=== PATIENT | female | born 1945 | race Caucasian/White ===

== ENCOUNTER 2022-04-11 02:25 | Outpatient (CLI) | payer MEDICARE, SELFPAY ==
[2022-04-11 12:58] LABS: Abs Immature Grans 0.02 10^3/uL (0.0-0.06); Absolute Basophil Count 0.03 10^3/uL (0.0-0.2); Absolute Eosinophil Count 0.06 10^3/uL (0.0-0.7); Absolute Lymphocyte Count 1.59 10^3/uL (1.2-3.4); Absolute Monocyte Count 0.75 10^3/uL (0.1-0.8); Absolute Neutrophil Count 4.94 10^3/uL (1.2-6.7); Basophils % 0.4; Eosinophils % 0.8; HCT 39.6 % (36.0-46.0); HGB 13.2 g/dL (11.2-15.7); Immature Grans % 0.3; Lymphocytes % 21.5; MCH 30.7 pg (27.0-33.0); MCHC 33.3 % (32.0-36.0); MCV 92 fL (80-95); MPV 9.7 fL (8.0-11.0); Monocytes % 10.1; Neutrophils % 66.9; Platelet Count 282 10^3/uL (130-400); RDW-SD 47.2 fL; WBC 7.39 10^3/uL (4.4-10.8)
[2022-04-11 14:45] LABS: ALT 22 U/L (14-59); AST 23 U/L (15-37); Albumin 3.7 g/dL (3.4-5.0); Alkaline Phosphatase 84 U/L (46-116); Anion Gap 7.6 mmol/L (3-11); BUN 21 mg/dL (7-18); Bilirubin, Total 0.3 mg/dL (0.2-1.0); CO2 29.4 mmol/L (21.0-32.0); CREATININE 0.8 mg/dL (0.55-1.02); Calcium 9.6 mg/dL (8.5-10.1); Chloride 104 mmol/L (98-107); Glucose 88 mg/dL (74-106); Potassium 4.1 mmol/L (3.5-5.1); Sodium 141 mmol/L (136-145); Total Protein 7.3 g/dL (6.4-8.2)
[2022-04-12 18:06] LABS: ADAMTS13 Activity Assay 54 % (>/=70)
== END 2022-04-11 02:26 | disposition home or self-care (01) ==
LOC: LBO 02:26
DX: D69.3 Immune thrombocytopenic purpura (principal)
CPT/HCPCS: 36415; 80053; 85397; 85025

== ENCOUNTER 2022-04-14 10:14 | Emergency (ER) | payer MEDICARE, SELFPAY ==
[2022-04-14 10:29] VITALS: BP 137/71; PULSE 90; RESP 18; TEMP 36.2; O2SAT 96
--- NOTE | 2022-04-14 10:41 | ED.GENADUL_ITS ---
Discharge Plan Disposition Patient Disposition: HOME Condition: Stable Discharge Details Clinical Impression: Thrombosis of left internal and external jugular veins Primary Care Provider: Tra Johnson ED Provider: Kacey Antonio Home Meds and New Rx's Prescriptions: New Eliquis 5 mg tablet 5 mg PO BID 90 Days Qty: 210 0RF Rx Instructions: Take 2 tabs twice daily for 1 week, and then 1 tab twice daily for 3 months Continued levothyroxine [Synthroid] 50 mcg Tablet 50 mcg PO DAILY Discharge Instructions Instructions: Deep Vein Thrombosis (ED) Additional Instructions: Your imaging today revealed a blood clot in the veins in the left side of your neck. [facility] hematology and vascular surgery are recommending treatment with anticoagulation which will likely be for the next 3 months. You will be taking 10 mg of Eliquis twice daily for 1 week and then 5 mg twice daily after that for approximately 3 months. You can follow-up with your talent development analyst in [place] for further evaluation in the next several weeks. You can follow-up with vascular surgery in [place] or follow-up with [facility] vascular surgery for further evaluation in the next month. An order for an outpatient ultrasound of your bilateral upper extremities has been placed. You will be contacted by the radiology department regarding scheduling of this test. You have been placed on care management list to arrange for a follow-up appointment with the primary care doctor to establish care and for reevaluation in the next few weeks. A referral has also been placed to [facility] vascular surgery if you decide to follow-up with them for reevaluation. Return immediately to the emergency department if you develop any worsening or new concerning symptoms. Discharge Data Discharge Physician: Kacey Antonio Medical Decision Making 1040 -- 76-year-old female with a history of TTP and splenectomy presents with tender lump at the base of her neck since last night. She also admits to fatigue last night but denies any fever. She had a recent lab draw on her left arm 3 days ago. She appears comfortable and nontoxic. There is an approximate 3 x 3 cm tender soft mobile mass noted above the left mid to medial clavicle. There is no overlying cellulitis, rash, lesions, crepitus or trauma. Her distal upper extremity pulses are intact. Normal oropharynx. No meningeal signs. Differential diagnosis includes reactive lymphadenopathy, blood clot, abscess, soft tissue swelling, less likely lymphoma. Patient was offered outpatient ultrasound but she would rather proceed with CT today. We will place an IV, bolus IV fluids, screening labs including CRP and ESR, COVID and obtain a CT neck w/ IV contrast. 1330 -- Labs and imaging reviewed. Normal white blood cell count. Platelets 260. CRP minimally elevated at 2.43. ESR within normal limits. COVID- negative. CT notes with thrombosis of the left innominate, left internal jugular and left external jugular vein. Overall findings interpreted as concerning for possible thrombophlebitis. We will consult [facility] hematology or vascular for review of images and further recommendations. 1430 -- discussed with [facility] hematology who feels that considering the vessels involved with the thrombosis, patient may need anticoagulation. Is recommending discussion with vascular surgery. Case discussed with [facility] vascular surgery who agrees with plan for anticoagulation for 3 months. Can treat with DOAC and likely Eliquis is jessica ropriate. Recommend an ultrasound of the bilateral upper extremities to assess for DVT on the right side and to assess flow. As patient has no physical congestion or upper extremity swelling, no surgical intervention indicated. Recommended further discussion with [facility] hematology if Eliquis appropriate with her history of TTP. Discussed with [facility] hematology and they recommend Eliquis 10 mg twice daily for 7 days then 5 mg twice daily for 3 months. [facility] hematology is also recommending a repeat CBC in 1 week to check her platelets. Can continue Eliquis if her platelets remain greater than 50,000. Patient can follow-up with hematology in [place] or in this area. [facility] vascular surgery states she can follow-up with vascular surgery in [place] or at [facility]. Patient was given a dose of Eliquis here in addition to doses to go for tomorrow and a prescription sent electronically to her pharmacy. An order for an outpatient bilateral upper extremity Doppler ultrasound placed. She was placed on care management list to establish care with a primary in the area for reevaluation and for repeat CBC in 1 week. A referral was also placed to [facility] vascular surgery for follow-up in 1 month. Usual and customary return precautions given prior to discharge. Medical Records Medical records reviewed: Yes I reviewed the patient's medical records. Imaging Data Radiologic Study: Radiologist's impression: CT Neck With Contrast Exam date and time: 04/14/2022 12:13 PM Age: 76 years old Clinical indication: Patient HX: Lump left side of neck. CT bb marker placed at area of lump while laying down. Patient has hypothyroidism. TECHNIQUE: Imaging protocol: Computed tomography of the neck with contrast. Radiation optimization: All CT scans at this facility use at least one of these dose optimization techniques: automated exposure control; mA and/or kV adjustment per patient size (includes targeted exams where dose is matched to clinical indication); or iterative reconstruction. Delayed interpretation of this study due to missing CT images with prolonged time to retrieve the images. Contrast material: OMNIPAQUE 350; Contrast volume: 100 ml; Contrast route: INTRAVENOUS (IV);? COMPARISON: No relevant prior studies available. FINDINGS: Pharynx: Unremarkable. No significant tonsillar enlargement. Larynx: Unremarkable. Epiglottis is normal. Prevertebral and retropharyngeal spaces: Unremarkable. Salivary glands: Nonspecific calcifications in the bilateral parotid glands. Thyroid: Normal. No enlarged or calcified nodules.? Lymph nodes: Unremarkable. No lymphadenopathy. Trachea: Visualized trachea is unremarkable. Lungs: Unremarkable as visualized. Bones/joints: Degenerative changes of the cervical spine. Vasculature: Thrombosis of the left innominate vein, left internal jugular vein and left external jugular vein. The skin marker localizes to the region of the thrombosed left external jugular vein. Soft tissues: Soft tissue inflammatory changes at the site of the left lower neck skin marker, extending into the supraclavicular region, anterior left chest wall and anterior mediastinum. No discrete soft tissue mass. IMPRESSION: Thrombosis of the left innominate vein, left internal jugular vein and left external jugular vein. The skin marker localizes to the region of the thrombosed left external jugular vein. Soft tissue inflammatory changes at the site of the left lower neck skin marker, extending into the supraclavicular region, anterior left chest wall and anterior mediastinum. Constellation of findings are concerning for possible thrombophlebitis. Correlate clinically. Lab Data Lab results reviewed: Yes I reviewed the patient's lab results. Labs: Laboratory Tests Range/Units 04/14/22 04/14/22 04/14/22 11:28 11:28 11:28 WBC (4.4-10.8) 10^3/uL 7.10 RBC (3.93-5.22) 10^6/uL 4.31 Hgb (11.2-15.7) g/dL 13.2 Hct (36.0-46.0) % 39.7 MCV (80-95) fL 92 MCH (27.0-33.0) pg 30.6 MCHC (32.0-36.0) % 33.2 RDW (11.7-14.6) % 14.0 Plt Count (130-400) 10^3/uL 260 MPV (8.0-11.0) fL 9.9 Immature Gran % 0.4 Neutrophils % 74.3 Lymphocytes % 14.8 Monocytes % 9.9 Eosinophils % 0.3 Basophils % 0.3 Nucleated RBC % (0.0-0.3) % 0.0 Absolute Neutrophils (1.2-6.7) 10^3/uL 5.28 Absolute Lymphocytes (1.2-3.4) 10^3/uL 1.05 L Absolute Monocytes (0.1-0.8) 10^3/uL 0.70 Absolute Eosinophils (0.0-0.7) 10^3/uL 0.02 Absolute Basophils (0.0-0.2) 10^3/uL 0.02 ESR (0-30) mm/hr 13 Sodium Cancelled Potassium Cancelled Chloride Cancelled Carbon Dioxide Cancelled Anion Gap Cancelled BUN Cancelled Creatinine Cancelled Estimated GFR/1.73 m2 Cancelled Glucose Cancelled Calcium Cancelled Total Bilirubin Cancelled AST Cancelled ALT Cancelled Alkaline Phosphatase Cancelled C-Reactive Protein Cancelled Total Protein Cancelled Albumin Cancelled COVID-19 Source SARS-CoV-2 (PCR) (Negative) Range/Units 04/14/22 04/14/22 11:35 12:25 WBC (4.4-10.8) 10^3/uL RBC (3.93-5.22) 10^6/uL Hgb (11.2-15.7) g/dL Hct (36.0-46.0) % MCV (80-95) fL MCH (27.0-33.0) pg MCHC (32.0-36.0) % RDW (11.7-14.6) % Plt Count (130-400) 10^3/uL MPV (8.0-11.0) fL Immature Gran % Neutrophils % Lymphocytes % Monocytes % Eosinophils % Basophils % Nucleated RBC % (0.0-0.3) % Absolute Neutrophils (1.2-6.7) 10^3/uL Absolute Lymphocytes (1.2-3.4) 10^3/uL Absolute Monocytes (0.1-0.8) 10^3/uL Absolute Eosinophils (0.0-0.7) 10^3/uL Absolute Basophils (0.0-0.2) 10^3/uL ESR (0-30) mm/hr Sodium 135 L Potassium 4.4 Chloride 102 Carbon Dioxide 28.4 Anion Gap 4.6 BUN 14 Creatinine 0.9 Estimated GFR/1.73 m2 >= 60.00 Glucose 91 Calcium 8.9 Total Bilirubin 0.5 AST 14 L ALT 17 Alkaline Phosphatase 78 C-Reactive Protein 2.43 H Total Protein 6.2 L Albumin 3.0 L COVID-19 Source Nasal/Nares SARS-CoV-2 (PCR) (Negative) Negative HPI General Mode of arrival: ambulatory . Date/Time Provider Initiated Documentation: 04/14/22 10:40 . Limitations to Documentation: no limitations . Information obtained by: patient . HPI Narrative: Pt is a 76yo F w/ a h/o TTP and splenectomy who presents to the ED presents to the ED with a complaint of tender lump above her left clavicle since last night. Patient states she noted a lump at the base of her neck above her left clavicle last night which has not significantly grown in size since she noticed it. She states it is tender to touch and seems to improve in size when laying or sitting down and increases in size when standing. She states she lives in [place] but has a house in [place] and has been here since April 01. She states her primary doctor in [place] ordered routine labs which she had done here as an outpatient on 04/11 for monitoring of her TTP. She states the lab was drawn in her left arm but denies any bruising or swelling around the area. She denies any recent vaccinations. She denies any known recent exposure to COVID. She does admit to fatigue since last night but denies any known fever,, chest pain, difficulty breathing, sore throat, ear pain, nausea, vomiting, diarrhea or abdominal pain. She has not taken any medication for pain today. Related Data Home Medications Medication Instructions Recorded Confirmed apixaban 5 mg tablet (Eliquis) 5 mg PO BID 3 months #210 tabs 04/14/22 levothyroxine 50 mcg tablet 50 mcg PO DAILY 04/14/22 04/14/22 (Synthroid) Previous Rx's Medication Instructions Recorded apixaban 5 mg tablet (Eliquis) 5 mg PO BID 3 months #210 tabs 04/14/22 Allergies Allergy/AdvReac Type Severity Reaction Status Date / Time No Known Allergies Allergy Unverified 04/14/22 10:33 General Stated Complaint: GenMedical ETHAN: 3 Review of Systems All systems reviewed & are unremarkable except as noted in HPI and below Constitutional Constitutional: Denies chills, Denies excessive sweating, Denies fatigue, Denies fever(s), Denies weakness and Denies weight loss Eyes Eyes: Reports system reviewed and no additional complaints, except as documented and Denies blurry vision ENT Ears, Nose, Mouth, and Throat: Denies vertigo, Denies dizziness, Denies otalgia, Denies nasal congestion, Denies sore throat and Denies throat swelling Cardiovascular Cardiovascular: Denies chest pain, Denies syncope, Denies rapid heart rate and Denies dyspnea Respiratory Respiratory: Denies chest congestion, Denies cough, Denies pain on inspiration and Denies dyspnea Gastrointestinal Gastrointestinal: Denies abdominal pain, Denies diarrhea and Denies vomiting Genitourinary Genitourinary: Denies hematuria, Denies dysuria and Denies flank pain Musculoskeletal Musculoskeletal: Denies back pain and Denies joint swelling Integumentary/Breasts Skin/Breast: Denies lesions and Denies rash Neurologic Neurologic: Denies behavioral changes, Denies confusion, Denies vertigo, Denies dizziness, Denies syncope, Denies localized weakness and Denies weakness Psychiatric Psychiatric: Denies behavioral changes, Denies confusion and Denies depression Endocrine Endocrine: Denies excessive sweating and Denies fatigue Hematologic/Lymphatic Hematologic/Lymphatic: Denies easy bruising and Denies lymphadenopathy Allergic/Immunologic Allergic/Immunologic: Denies throat swelling PFSH All Active Problems (Updated 04/14/22 @ 16:37 by Kacey Antonio DO) Thrombosis of left internal and external jugular veins (Acute) Medical History (Updated 04/14/22 @ 16:37 by Kacey Antonio DO) Idiopathic thrombocytopenic purpura (ITP) TTP (thrombotic thrombocytopenic purpura) Surgical History (Updated 04/14/22 @ 11:13 by Kacey Antonio DO) History of total splenectomy Social History Smoking/Tobacco Use Status: Former Tobacco Use Smoking risk assessment performed?: Yes Alcohol Intake: current Alcohol Intake frequency: holidays/special occasions only Drug use: Never Substance use type: does not use Do you feel safe at home: Yes Do you feel safe in your relationship?: Yes Exam Const General: cooperative and healthy appearing Orientation: alert, awake and oriented x3 HENMT Head: normal to inspection Ears: hearing grossly normal bilaterally, external ears normal and TM's normal bilaterally General nose exam: external nose normal Face and sinus: normal facial exam Mouth: oral mucosae normal Teeth and gingiva: dentition normal Throat: posterior oropharynx normal Eyes General: appearance normal, both eyes and all related structures Eyelids: eyelids normal Pupils: PERRL EOM: EOM intact bilaterally Neck Neck: normal visual inspection Lymphatic: no lymphadenopathy noted Neck images: 1. An approximate 3 x 3 cm soft mobile tender mass noted above the left medial to mid clavicle. It appears to diminish in size when supine and the increase in size or become more prominent upon standing. There is no overlying erythema, rash, lesions, ecchymosis or crepitus. Chest Chest: normal inspection of the chest Resp Effort & Inspection: normal respiratory effort and able to speak in complete sentences Auscultation: clear to auscultation bilaterally Cardio Rate: regular rate Rhythm: regular rhythm GI Inspection: normal to inspection Palpation: soft, not firm, no guarding, no hepatosplenomegaly, no masses and nontender Auscultation: normal bowel sounds Back/Spine/Pelvis Back: no CVA tenderness Skin General skin exam: no rashes or lesions noted Neuro General: patient alert and patient awake Cognition: normal cognition Speech: speech normal Gait: normal gait Motor: muscle tone normal throughout Sensory Exam: no sensory deficits noted Extrem General: normal to inspection, full ROM and capillary refill normal Other: Bilateral radial and ulnar pulses intact. Psych Appearance: grossly normal Mental Status: mental status grossly normal Speech and Movement: speech and movement normal Affect: normal affect Thought Process: normal Course Vital Signs Vital signs: Vital Signs Temperature 97.2 F L 04/14/22 10:29 Pulse 90 04/14/22 10:29 Respiratory Rate 18 04/14/22 10:29 Blood Pressure 137/71 04/14/22 10:29 Pulse Oximetry 96 04/14/22 10:29 Temperature 97.2 F L 04/14/22 10:29 Temperature Source Temporal Artery Scan 04/14/22 10:29 Pulse 90 04/14/22 10:29 Respiratory Rate 18 04/14/22 10:29 Respiratory Effort Non-Labored 04/14/22 10:34 Blood Pressure 137/71 04/14/22 10:29 Blood Pressure Position Sitting 04/14/22 10:29 Pulse Oximetry 96 04/14/22 10:29 Oxygen Delivery Method Room Air 04/14/22 10:29 Oxygen Flow Rate 0 04/14/22 10:29
--- NOTE | 2022-04-14 11:00 | DI.CT_ITS ---
Exam(s) CT NECK W EXAM: CT NECK W CLINICAL HISTORY: supraclavicular mass, r/o lymph node/fluid/clot. TECHNIQUE: Imaging Protocol: Axial CT angiography was performed with multi-slice acquisition and mu lti-planar and/or 3D reconstructions. CONTRAST MATERIAL: Intravenous: Omnipaque 350 Contrast volume:100 mL COMPARISON: No exams were available for comparison FINDINGS: There is a BB marker on the left side of the neck. This appears to correspond to a thrombosed left e xternal jugular vein. There. There appears to be thrombosis of both the left internal and external jugular veins. Also thrombosis of the left innominate vein. There is no separate discrete soft tiss ue mass. However, there is some inflammatory change in the lower left neck region, these findings to gether implying probable thrombophlebitis. Nasopharynx: Unremarkable. Oropharynx: Unremarkable. Hypopharynx: Unremarkable. Valleculae and epiglottis appear unremarkable. Aryepiglottic folds unrem arkable. True vocal cords and subglottic airway: Unremarkable. Thyroid gland: Unremarkable. Salivary glands: Small calcifications in the parotid glands bilaterally. No discrete mass although t he both parotid glands appears denser than typical. The parotid glands appear atrophic, more so on t he left than the right. Lymph nodes: No lymphadenopathy seen in the neck. Paranasal sinuses: Clear. Incidentally noted is a left pleural effusion. IMPRESSION: 1. There is thrombosis of the left dominant vein, left internal jugular vein, left external jugular v ein. The skin marker is over region of thrombosed left external jugular vein. There is soft tissue inflammatory changes at the site of the left lower neck skin marker and extending into the supraclavi cular region/anterior left chest wall. Consultations of findings are concerning for possible thrombo phlebitis. RADIATION DOSE DELIVERED: 390.54mGy.cm Total DLP DATA REPOSITORY: All CT scans at this facility are submitted to the National Radiology Data Registry (NRDR) Dose Index Registry (DIR) with the [employer] ([employer]). RADIATION OPTIMIZATION: All CT scans at this facility use at least one of these dose optimization te chniques: automated exposure control; mA and/or kV adjustment per patient size (includes targeted exa ms where dose is matched to clinical indication); or iterative reconstruction.
[2022-04-14] MEDS: ACETAMINOPHEN 1,000 MG/100 ML BTL 400 MG IVPB (11:28)
[2022-04-14] MEDS: Normal Saline 1,000 ML 1000 ML IV (11:28)
[2022-04-14 11:36] VITALS: RESP 18
[2022-04-14 11:38] LABS: Source Nasal/Nares
[2022-04-14 11:39] LABS: Abs Immature Grans 0.03 10^3/uL (0.0-0.06); Absolute Basophil Count 0.02 10^3/uL (0.0-0.2); Absolute Eosinophil Count 0.02 10^3/uL (0.0-0.7); Absolute Lymphocyte Count 1.05 10^3/uL (1.2-3.4); Absolute Neutrophil Count 5.28 10^3/uL (1.2-6.7); Basophils % 0.3; Eosinophils % 0.3; HCT 39.7 % (36.0-46.0); HGB 13.2 g/dL (11.2-15.7); Immature Grans % 0.4; Lymphocytes % 14.8; MCH 30.6 pg (27.0-33.0); MCHC 33.2 % (32.0-36.0); MCV 92 fL (80-95); MPV 9.9 fL (8.0-11.0); Monocytes % 9.9; Neutrophils % 74.3; Platelet Count 260 10^3/uL (130-400); RBC 4.31 10^6/uL (3.93-5.22); RDW-SD 47.2 fL
[2022-04-14 11:43] LABS: ESR 13 mm/hr (0-30)
[2022-04-14] MEDS: Omnipaque 350 MG/ML 100 ML BTL IJ (12:07)
[2022-04-14 12:33] LABS: COVID-19 PCR Negative (Negative)
[2022-04-14 12:48] LABS: ALT 17 U/L (14-59); AST 14 U/L (15-37); Alkaline Phosphatase 78 U/L (46-116); Anion Gap 4.6 mmol/L (3-11); BUN 14 mg/dL (7-18); Bilirubin, Total 0.5 mg/dL (0.2-1.0); C-Reactive Protein 2.43 mg/dL (0.0-0.3); CO2 28.4 mmol/L (21.0-32.0); CREATININE 0.9 mg/dL (0.55-1.02); Calcium 8.9 mg/dL (8.5-10.1); Chloride 102 mmol/L (98-107); Glucose 91 mg/dL (74-106); Potassium 4.4 mmol/L (3.5-5.1); Sodium 135 mmol/L (136-145); Total Protein 6.2 g/dL (6.4-8.2)
--- NOTE | 2022-04-14 13:56 | DI.VRAD_ITS ---
PROCEDURE INFORMATION: Exam: CT Neck With Contrast Exam date and time: 04/14/2022 12:13 PM Age: 76 years old Clinical indication: Patient HX: Lump left side of neck. CT bb marker placed at area of lump while laying down. Patient has hypothyroidism. TECHNIQUE: Imaging protocol: Computed tomography of the neck with contrast. Radiation optimization: All CT scans at this facility use at least one of these dose optimization techniques: automated exposure control; mA and/or kV adjustment per patient size (includes targeted exams where dose is matched to clinical indication); or iterative reconstruction. Delayed interpretation of this study due to missing CT images with prolonged time to retrieve the images. Contrast material: OMNIPAQUE 350; Contrast volume: 100 ml; Contrast route: INTRAVENOUS (IV); COMPARISON: No relevant prior studies available. FINDINGS: Pharynx: Unremarkable. No significant tonsillar enlargement. Larynx: Unremarkable. Epiglottis is normal. Prevertebral and retropharyngeal spaces: Unremarkable. Salivary glands: Nonspecific calcifications in the bilateral parotid glands. Thyroid: Normal. No enlarged or calcified nodules. Lymph nodes: Unremarkable. No lymphadenopathy. Trachea: Visualized trachea is unremarkable. Lungs: Unremarkable as visualized. Bones/joints: Degenerative changes of the cervical spine. Vasculature: Thrombosis of the left innominate vein, left internal jugular vein and left external jugular vein. The skin marker localizes to the region of the thrombosed left external jugular vein. Soft tissues: Soft tissue inflammatory changes at the site of the left lower neck skin marker, extending into the supraclavicular region, anterior left chest wall and anterior mediastinum. No discrete soft tissue mass. IMPRESSION: Thrombosis of the left innominate vein, left internal jugular vein and left external jugular vein. The skin marker localizes to the region of the thrombosed left external jugular vein. Soft tissue inflammatory changes at the site of the left lower neck skin marker, extending into the supraclavicular region, anterior left chest wall and anterior mediastinum. Constellation of findings are concerning for possible thrombophlebitis. Correlate clinically. Dictated and Authenticated by: Sharyn Robins MD. Ordering:VENUS Erazo MD
[2022-04-14 14:32] VITALS: BP 126/80; PULSE 65; TEMP 36.6; O2SAT 99
[2022-04-14] MEDS: Apixaban 5 MG TAB 10 MG PO (16:37)
[2022-04-14] MEDS: Apixaban 5 MG TAB 30 MG PO (16:37)
[2022-04-14 16:46] VITALS: BP 128/76; PULSE 72; RESP 17; TEMP 36.6; O2SAT 99
--- NOTE | 2022-04-14 17:02 | NUR.NOTE ---
patient needs to establish care with a PCP and have repeat CBC within 1 wk. for re evaluation of left neck DVT p/ Dr. Lucy MCCORMICK Patient also needs a referral to [facility] Vascular surgery for evaluation of left neck DVT within 1 moth p/Dr. Antonio. ANNY
--- NOTE | 2022-04-16 16:34 | PDOC.ERCMACT ---
- If Service Date Differs Date of service: 04/16/22 Time of Service: 16:34 Care Management Activity Note Geno is seen in the ED for thrombosis of left internal and external jugular veins. At the request of ED provider, CM coordinates a referral to [facility] [place] [facility] [place] to assist Geno in obtaining a follow up appointment for further evaluation and treatment.
== END 2022-04-14 17:08 | disposition home or self-care (01) ==
PROVIDERS: Emergency Provider Physician Assistant
DX: I82.C12 Acute embolism and thrombosis of left internal jugular vein (principal); R22.1 Localized swelling, mass and lump, neck
CPT/HCPCS: 36415; 70491; 80053; 85652; 87635; 96361; 96374; 99284; 99285; 85025; 86140; J0131; J3490

== ENCOUNTER → 2022-04-17 00:49 | Outpatient (CLI) | payer MEDICARE, SELFPAY ==
--- NOTE | 2022-04-17 | DI.US_ITS ---
Exam(s) US EXTREMITY VENOUS BI EXAM: US EXTREMITY VENOUS BI CLINICAL HISTORY: DVT LT INTERNAL/EXTERNAL JUGULAR ON CT 04/14/22, I82.C22. TECHNIQUE: Ultrasound examination of the Bilateral upper extremity venous system(s) is performed usi ng grayscale, color-flow, and spectral Doppler analysis. COMPARISON: CT CT NECK W from 04/14/2022 FINDINGS: The right internal jugular, axillary, subclavian, cephalic, basilic, brachial, radial, and ulnar vein s are patent without evidence of thrombosis. There is thrombus visible in the left internal jugular vein extending from the proximal portion throu gh the distal visualized portion. Length of thrombus approximately 10 cm. the left innominate, sub clavian, axillary, cephalic, basilic, brachial, radial, and ulnar veins are patent without evidence o f thrombosis. IMPRESSION: Right: Negative for DVT. Left: Right jugular venous thrombosis. Innominate vein now appears patent. DATA REPOSITORY:
== END ==
PROVIDERS: Visit Provider Physician Assistant
DX: I82.C12 Acute embolism and thrombosis of left internal jugular vein (principal)
CPT/HCPCS: 99281; 93970

== ENCOUNTER 2022-04-17 14:23 | Emergency (ER) | payer MEDICARE, SELFPAY ==
[2022-04-17 14:33] VITALS: BP 154/90; PULSE 87; RESP 16; TEMP 37; O2SAT 98
--- NOTE | 2022-04-17 15:30 | ED.GENADUL_ITS ---
Discharge Plan Disposition Patient Disposition: HOME Condition: Stable Discharge Details Clinical Impression: Jugular vein thrombosis, left Primary Care Provider: Tra Johnson ED Provider: Mesfin Sanches Home Meds and New Rx's Prescriptions: Continued levothyroxine [Synthroid] 50 mcg Tablet 50 mcg PO DAILY Eliquis 5 mg tablet 5 mg PO BID 90 Days Qty: 210 0RF Rx Instructions: Take 2 tabs twice daily for 1 week, and then 1 tab twice daily for 3 months Discharge Instructions Additional Instructions: Please follow-up with your hat mender, vascular surgery and primary care physician as directed by Dr. Antonio. Avoid activities that cause rapid movement of neck. Return to the ER immediately for any worsening or new concerning symptoms. Discharge Data Discharge Date/Time-TO BE ENTERED AT DEPARTURE: 04/17/22 15:55 Medical Decision Making I reviewed CT of the neck that was performed 04/14/2022, radiologist impression: 1. There is thrombosis of the left dominant vein, left internal jugular vein, left external jugular vein.? The skin marker is over region of thrombosed left external jugular vein.? There is soft tissue inflammatory changes at the site of the left lower neck skin marker and extending into the supraclavicular region/anterior left chest wall.? Consultations of findings are concerning for possible thrombophlebitis.? I reviewed venous ultrasound of the extremities that was performed today and discussed results with Dr. Roca, her impression is:Right: Negative for DVT. Left: Right jugular venous thrombosis.? Innominate vein now appears patent. Reviewed results with the patient. Patient has plan for outpatient follow-up. Patient was encouraged to return immediately for any worsening or new concerning symptoms. HPI General Mode of arrival: ambulatory . Date/Time Provider Initiated Documentation: 04/17/22 14:38 . Limitations to Documentation: no limitations . Information obtained by: patient . HPI Narrative: Patient seen on 11/15/2021, found to have deep vein thrombosis left internal and external jugular, patient was discharged with plan for outpatient follow-up with vascular as well as ultrasound of the extremities. Patient had ultrasound today and is returning to review results only. She has no additional complaints at this time. Related Data Home Medications Medication Instructions Recorded Confirmed apixaban 5 mg tablet (Eliquis) 5 mg PO BID 3 months #210 tabs 04/14/22 04/17/22 levothyroxine 50 mcg tablet 50 mcg PO DAILY 04/14/22 04/17/22 (Synthroid) Previous Rx's Medication Instructions Recorded apixaban 5 mg tablet (Eliquis) 5 mg PO BID 3 months #210 tabs 04/14/22 Allergies Allergy/AdvReac Type Severity Reaction Status Date / Time No Known Allergies Allergy Unverified 04/17/22 14:36 General Stated Complaint: Recheck ETHAN: 5 PFSH All Active Problems (Updated 04/17/22 @ 15:31 by Mesfin Sanches MD) Thrombosis of left internal and external jugular veins (Acute) Jugular vein thrombosis, left (Acute) Medical History (Updated 04/17/22 @ 15:31 by Mesfin Sanches MD) Idiopathic thrombocytopenic purpura (ITP) TTP (thrombotic thrombocytopenic purpura) Surgical History (Updated 04/14/22 @ 11:13 by Kacey Antonio DO) History of total splenectomy Social History Smoking/Tobacco Use Status: Former Tobacco Use Smoking risk assessment performed?: Yes Alcohol Intake: current Alcohol Intake frequency: holidays/special occasions only Drug use: Never Substance use type: does not use Do you feel safe at home: Yes Do you feel safe in your relationship?: Yes Exam Const General: cooperative, comfortable and no acute distress Course Vital Signs Vital signs: Vital Signs Temperature 37 C 04/17/22 14:33 Pulse 87 04/17/22 14:33 Respiratory Rate 16 04/17/22 14:33 Blood Pressure 154/90 H 04/17/22 14:33 Pulse Oximetry 98 04/17/22 14:33 Temperature 37 C 04/17/22 14:33 Temperature Source Temporal Artery Scan 04/17/22 14:33 Pulse 87 04/17/22 14:33 Respiratory Rate 16 04/17/22 14:33 Respiratory Effort 04/17/22 14:35 Blood Pressure 154/90 H 04/17/22 14:33 Blood Pressure Position Sitting 04/17/22 14:33 Pulse Oximetry 98 04/17/22 14:33 Oxygen Delivery Method Room Air 04/17/22 14:33 Oxygen Flow Rate 0 04/17/22 14:33 Pain Level 2 04/17/22 14:33
== END 2022-04-17 15:55 | disposition home or self-care (01) ==
PROVIDERS: Emergency Provider Student in an Organized Health Care Education/Training Program
DX: I82.C12 Acute embolism and thrombosis of left internal jugular vein (principal); Z87.891 Personal history of nicotine dependence
CPT/HCPCS: 99281